=== PATIENT | male | born 2000 | race Caucasian/White ===

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

== ENCOUNTER 2021-07-12 22:33 | Emergency (ER) | payer OTHER ==
[~2021-07-12 22:33] MED LIST: PERCOCET 5/325 T1 EA PO; SILVADENE CREAM20 GM TOP
[2021-07-12] MEDS ORDERED: IBUPROFEN600 MG PO (23:23)
[2021-07-12] MEDS ORDERED: NORFLEX 100 MG100 MG PO (23:23)
== END 2021-07-12 23:36 | disposition home or self-care (01) ==
LOC: ER1 22:33
DX: S39.012A Strain of muscle, fascia and tendon of lower back, initial encounter (principal); S60.221A Contusion of right hand, initial encounter; F17.210 Nicotine dependence, cigarettes, uncomplicated; W22.8XXA Striking against or struck by other objects, initial encounter
CPT/HCPCS: 73130; 99283